=== PATIENT | female | born 1995 | race Hispanic/Latino ===

== ENCOUNTER 2023-10-23 13:53 | Emergency (ER) | payer BC, SELFPAY ==
[2023-10-23] MEDS ORDERED: Acetaminophen 500 MG TAB ONE (14:39)
== END 2023-10-23 15:29 | disposition home or self-care (01) ==
LOC: MADERS 13:53
DX: J10.1 Influenza due to other identified influenza virus with other respiratory manifestations (principal)
CPT/HCPCS: 87804; 99283